=== PATIENT | male | born 1990 | race Caucasian/White ===

== ENCOUNTER → 2022-12-03 11:29 | Outpatient (CLI) | payer OTHER, SELFPAY ==
--- NOTE | ~2022-12-03 | CT_ITS ---
Non-contrast Head CT History: Pain Technique: Axial non-contrast imaging of the brain was performed. Dose reduction technique was used on this scan by utilizing automated exposure control and iterative reconstruction technique. The dose -length product (DLP) was 599.57 mGy-cm. Findings: There is no evidence of intracranial hemorrhage, mass lesion, or acute infarct. Brain par enchyma appears normal. The ventricles and subarachnoid spaces are normal in size. The calvarium ap pears normal. The visualized paranasal sinuses and mastoid air cells are clear. Impression: No significant abnormality seen. Reviewed, dictated and finalized at location . Impression: No significant abnormality seen.
== END ==
PROVIDERS: PCP Family Medicine Sports Medicine; Visit Provider Family Medicine Sports Medicine
DX: G43.909 Migraine, unspecified, not intractable, without status migrainosus (principal); I10 Essential (primary) hypertension
CPT/HCPCS: 70450

== ENCOUNTER 2024-12-09 14:43 | Emergency (ER) | payer OTHER, SELFPAY ==
--- NOTE | ~2024-12-09 | US_ITS ---
TESTICULAR ULTRASOUND (Doppler ultrasound interrogation techniques used as needed for this exam.) Ordering provider: Shahid Ricks MD History: . left testicular pain . Comparison: None. FINDINGS: TESTICLES: Normal in size. The right measures 4.3x 2x 3 cm and the left measures 3.8x 2x 2.9 cm. Norm al echogenicity bilaterally without mass lesion. Normal Doppler flow bilaterally. EPIDIDYMIDES: Normal in size. The right measures 0.5 cm and the left 0.6 cm. Normal echogenicity bila terally. Both demonstrate normal Doppler flow. Epididymal cyst is seen on the left side measuring 0.3 x 0.3 x 0.3 cm.. HYDROCELE: Left hydrocele. VARICOCELE: Left varicocele. OTHER ABNORMALITY: None seen. IMPRESSION: Left epididymal cyst. Left hydrocele. Left varicocele. Otherwise, normal testicular ultrasound. Reviewed, dictated and finalized at location A. IMPRESSION: Left epididymal cyst. Left hydrocele. Left varicocele. Otherwise, normal testic ular ultrasound.
--- NOTE | ~2024-12-09 | CT_ITS ---
CT abdomen pelvis wo con Ordering provider: Shahid Ricks History: 34 years Male with . LLQ pain/testicular pain . Comparison: None. Technique: CT abdomen and pelvis without IV and without oral contrast. Automated exposure control and iterative reconstruction technique were employed. The dose-length product was 264.73 mGy-cm. Findings: VISUALIZED LOWER CHEST: Normal. UPPER ABDOMINAL ORGANS: Liver: Normal. Gallbladder: Contracted. Spleen: Normal. Stomach/duodenum: Normal. Pancreas: Normal. Adrenals: Normal. Kidneys: 5 mm stone in the left kidney lower pole. Minimal fullness of the left pelvicalyceal system versus parapelvic cysts. No ureteric stones. PELVIC ORGANS: The bladder is underfilled. BOWEL AND MESENTERY: Colon: No evidence of diverticulitis. Normal appendix. Small Bowel: Normal. No obstruction. Peritoneum/mesentery: No free air or free fluid. No mesenteric lymphadenopathy. RETROPERITONEUM: Normal aorta. No retroperitoneal lymphadenopathy. MUSCULOSKELETAL: Superficial soft tissues: The superficial soft tissues are normal. Bones: Normal spine. IMPRESSION: 1. No evidence of appendicitis, diverticulitis or intestinal obstruction. 2. Left kidney stone. 3. Left fullness of the renal pelvis versus parapelvic cysts. Reviewed, dictated and finalized at location A.
--- OUTSIDE RECORDS SUMMARY | 2024-12-09 14:44 | XMS_ITS | Encounter Summary ---
Author Organization [employer] Address 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
--- OUTSIDE RECORDS SUMMARY | 2024-12-09 14:44 | XMS_ITS | Encounter Summary ---
Author Organization [facility] Address [address] [place] [address] Care Team Providers Care Engineer Name Role Phone Jaycob Blackwell MD Primary Care Provider [phone] Reason for Visit * Reason Onset Date Comments Return To Work 09/27/2018 please fax retur n to work status to [phone] ATTN: Yue Rodriguez Encounter Details Date Type Department Care Team (Late st Contact Info) Description 09/27/2018 Telephone [facility] [address] [place] [address] Ajay Trent MD [address] [address] Return To Work (please fax return to work status to [phone] ATTN: Yue Rodriguez) Social History Tobacco Use Types Packs/Day Years Used Date Smoking Tobacco: Never Smokeless Tobacco: Never Alcohol Use Standard Drinks/Week Comments No 0 (1 standard drink = 0.6 oz pur e alcohol) Sex and Gender Information Value Date Recorded Sex Assigned at Not on file 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 Answer Date of Assessment Author No 08/10/2018 2:33 PM CDT Betty Nugent RN * Is person blind or have serious difficulty seeing? Answer Date of Assessment Author No 08/10/2018 2:33 PM CDT Betty Nugent RN * Does person have serious difficulty walking/climbing stairs? Answer Date of Assessment Author No 08/10/2018 2:33 PM CDT Betty Nugent RN * Does person have difficulty dressing/bathing? Answer Date of Assessment Author No 08/10/2018 2:33 PM CDT Betty Nugent RN * Does person have difficulty doing errands alone? Answer Date of Assessment Author No 08/10/2018 2:33 PM CDT Betty Nugent RN documented as of this encounter Mental Status * Does person have difficulty concentrating/remembering/making decisions? Answer Entry Date Author No 08/10/2018 2:33 PM CDT Betty Nugent RN documented in this encounter Miscellaneous Notes * Telephone Encounter - Paulo Song MD - 09/27/2018 6:51 PM CDT Faxed Paulo Song MD, PGY5 Division of Plastic and Reconstructive Surgery [facility] 09/27/18 6:51 PM documented in this encounter Plan of Treatment Not on file documented as of this encounter Visit Diagnoses Not on filedocumented in this encounter Care Teams Engineer Relationship Specialty Start Date End Date Jaycob Blackwell MD [address] [address] PCP - General 08/04/18 documented as of this encounter
--- OUTSIDE RECORDS SUMMARY | 2024-12-09 14:44 | XMS_ITS | Clinical Summary ---
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
--- OUTSIDE RECORDS SUMMARY | 2024-12-09 14:44 | XMS_ITS | Patient Health Record ---
Author Organization [facility] Address [address] [place] [address] Care Team Providers Care Hi Lo Driver Name Role Phone Benny Ovalle Primary Care Provider Reason For Referral No Information Plan Of Treatment No Information Insurance Providers Payer Name Payer Address Payer Phone Subscriber Number Group Number Insured Name Patient Relationship to Insured Coverage Start Date Coverage End Date C[employer] [address] [place] [phone] [id number] Daniel Norton Self - patient is the insured 2020
--- OUTSIDE RECORDS SUMMARY | 2024-12-09 14:45 | XMS_ITS | Encounter Summary ---
Author Organization [facility] Address [address] [place] [address] Care Team Providers Care Labor Relations Specialist Name Role Phone Jaycob Blackwell MD Primary Care Provider [phone] Encounter Details Date Type Department Care Team (Late st Contact Info) Description 12/07/2018 Telephone [facility] [address] [place] [address] Ajay Trent MD [address] [address] Social History Tobacco Use Types Packs/Day Years Used Date Smoking Tobacco: Never Smokeless Tobacco: Never Alcohol Use Standard Drinks/Week Comments No 0 (1 standard drink = 0.6 oz pur e alcohol) Sex and Gender Information Value Date Recorded Sex Assigned at Not on file 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
--- OUTSIDE RECORDS SUMMARY | 2024-12-09 14:45 | XMS_ITS | Encounter Summary ---
Author Organization [facility] Address [address] [place] [address] Care Team Providers Care Salesperson Meats Name Role Phone Jaycob Blackwell MD Primary Care Provider Encounter Details Date Type Department Care Team (Late st Contact Info) Description 08/10/2018 Telephone [facility] [address] [place] [address] Ajay Trent MD [address] [address] Social History Tobacco Use Types Packs/Day Years Used Date Smoking Tobacco: Never Smokeless Tobacco: Never Alcohol Use Standard Drinks/Week Comments No 0 (1 standard drink = 0.6 oz pur e alcohol) Sex and Gender Information Value Date Recorded Sex Assigned at Not on file 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
--- OUTSIDE RECORDS SUMMARY | 2024-12-09 14:45 | XMS_ITS | Clinical Summary ---
Author Organization [facility] Address [address] [place] [address] Care Team Providers Care Air Surveillance Operator Name Role Phone Jaycob Blackwell MD Primary Care Provider [phone] Source Comments [facility],non-owned Affiliates and Associated Physician Practices is amultiple site organization consisting of ambulatory clinics and hospital sitesin [place], [place], [place] and [place]. This disclosure is being madepursuant to the Care Everywhere program and may not contain all information available regarding this patient. Last updated 18.[facility] Allergies No known active allergies Medications * Be aware that medications may not be up to date on this document. Alwaysverify current medications with the patient. 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 08/04/2018 Displaced fracture of base o f fourth metacarpal bone of right hand with routine healing Displaced fracture of base o f fifth metacarpal bone of right hand with routine healing Open wound of right wrist with tendon involvemen t Family History Medical History Relation Name Comments None Known Father None Known Mother Relation Name Status Comments Father Alive Mother Alive Social History Tobacco Use Types Packs/Day Years Used Date Smoking Tobacco: Former Smokeless Tobacco: Never Tobacco Cessation:Counseling Given: No Alcohol Use Standard Drinks/Week Comments No 0 (1 standard drink = 0.6 oz pur e alcohol) Sex and Gender Information Value Date Recorded Sex Assigned at Not on file 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 Gender Identity Not on file Sexual Orientation Not on file Last Filed Vital Signs Vital Sign Reading Time Taken Comments Blood Pressure 122/84 07/01/2019 2:36 PM BRANCH CONTROLLER Pulse 123 07/01/2019 2:36 PM BRANCH CONTROLLER Temperature 37.2 C (99 F) 07/01/2019 2:36 PM BRANCH CONTROLLER Respiratory Rate 16 07/01/2019 2:36 PM BRANCH CONTROLLER Oxygen Saturation 96% 07/01/2019 2:36 PM BRANCH CONTROLLER Inhaled Oxygen Concentration 21% 08/10/2018 2 :10 PM CDT Weight 86.2 kg (190 lb) 07/01/2019 2:36 PM BRANCH CONTROLLER Height 167.6 cm (5' 6) 07/01/2019 2:36 PM BRANCH CONTROLLER Body Mass Index 30.67 07/01/2019 2:36 PM BRANCH CONTROLLER Plan of Treatment Health Maintenance Due Date Last Done Comments HIV SCREENING 2004 HEPATITIS C SCREENING 09/01/2007 DTAP/TDAP/TD VACCINES (1 - Tdap) 2008 HEPATITIS B VACCINE (1 of 3 - 19+ 3-dose series) 2008 HPV VACCINE (1 - 3-dose SCDM series) 2016 COVID-19 VACCINE ( - 2023-2 5 season) 2024 DEPRESSION SCREENING 05/30/2024 INFLUENZA VACCINE (#1) 2025 07/08/2017 ZOSTER VACCINE (1 of 2) 09/06/2039 HIB VACCINE Aged Out No longer eligi ble based on patient's age to complete this topic MENINGOCOCCAL (Group B) VACC INE SHARED DECISION-MAKING Aged Out No longer eligibl e based on patient's age to complete this topic MENINGOCOCCAL GROUPS A/C/Y/W VACCINE Aged Out No longer eligible b ased on patient's age to complete this topic PNEUMOCOCCAL VACCINE Aged Out No long er eligible based on patient's age to complete this topic Medical Devices Implanted Type Area Bulk Sausage Casing Tier Off Device Identifier Shelf Expiration Date Model / Serial / Lot Wire K .045in 6in 2 Troc Smth Fx Strl Implanted:Qty: 1 on 08/10/2018 by Ajay Trent MD at [facility] Right: Hand [employer] 12/21/2021 [id number] / / [id number] Mtrx Tissue 5x5cm Cytal Mesh Brn - [id number] Implanted:Qty: 1 on 08/10/2018 by Ajay Trent MD at [facility] Right: Hand [employer] 04/28/2020 [id number] / [id number] / [id number] Explanted Type Area Bulk Sausage Casing Tier Off Device Identifier Shelf Expiration Date Model / Serial / Lot Wire K .045in 6in 2 Troc Smth Fx Strl Explanted:Qty: 1 on 08/10/2018 by Ajay Trent MD at [facility] Right: Hand [employer] 12/21/2021 [id number] / / [id number] [facility] PAYOR GENERIC [facility] Address: [address] [id number] [place] [address] CIGNA PAYOR GENERIC PAYOR GENERIC PAYOR GENERIC WC PAYOR GENERIC Advance Directives * Full Code (Latest Code Status on File) Date Activated Date Inactivated Comments 08/09/2018 5:47 PM 08/10/2018 3:43 PM Care Teams Air Surveillance Operator Relationship Specialty Start Date End Date Jaycob Blackwell MD [address] [address] PCP - General 08/04/18
--- OUTSIDE RECORDS SUMMARY | 2024-12-09 14:45 | XMS_ITS | Encounter Summary ---
Author Organization [facility] Address [address] [facility] [place] [address] Care Team Providers Care Briquette Machine Operator Name Role Phone Jaycob Blackwell MD Primary Care Provider [phone] Reason for Visit * Reason Onset Date Comments Return To Work 08/07/2018 pt called and he needs a note faxed to his job letting them know how long he will be off from work - he is scheduled for surgery 08/10/18 - please fax to Human Resources @ [phone] Encounter Details Date Type Department Care Team (Late st Contact Info) Description 08/07/2018 Telephone [facility] [address] [place] [address] Ajay Trent MD [address] [address] Return To Work (pt called and he needs a note faxed to his job letting them know how long he will be off from work - he is scheduled for surgery 08/10/18 - please fax to Human Resources @ [phone]) Social History Tobacco Use Types Packs/Day Years Used Date Smoking Tobacco: Never Smokeless Tobacco: Never Alcohol Use Standard Drinks/Week Comments No 0 (1 standard drink = 0.6 oz pur e alcohol) Sex and Gender Information Value Date Recorded Sex Assigned at Not on file 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 I returned the patient's phone call. I will fax the letter to the number listed. Jone Vargas MD 08/07/2018 1:06 PM Pager: [phone] documented in this encounter Plan of Treatment Not on file documented as of this encounter Visit Diagnoses Not on filedocumented in this encounter Care Teams Briquette Machine Operator Relationship Specialty Start Date End Date Jaycob Blackwell MD [address] [facility] [address] [place] [address] PCP - General 08/04/18 documented as of this encounter
--- OUTSIDE RECORDS SUMMARY | 2024-12-09 14:45 | XMS_ITS | Encounter Summary ---
Author Organization [facility] Address [address] [place] [address] Care Team Providers Care Dinkey Skinner Name Role Phone Jaycob Blackwell MD Primary Care Provider [phone] Encounter Details Date Type Department Care Team (Late st Contact Info) Description 08/04/2018 Telephone [facility] [address] [place] [address] Ajay Trent MD [address] [address] Social History Tobacco Use Types Packs/Day Years Used Date Smoking Tobacco: Never Smokeless Tobacco: Never Alcohol Use Standard Drinks/Week Comments No 0 (1 standard drink = 0.6 oz pur e alcohol) Sex and Gender Information Value Date Recorded Sex Assigned at Not on file 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 UT CLEANER documented in this encounter Plan of Treatment Not on file documented as of this encounter Visit Diagnoses Not on filedocumented in this encounter Care Teams Dinkey Skinner Relationship Specialty Start Date End Date Jaycob Blackwell MD [address] [place] [address] PCP - General 08/04/18 documented as of this encounter
--- OUTSIDE RECORDS SUMMARY | 2024-12-09 14:45 | XMS_ITS | Continuity of Care Document ---
Author Organization [facility] Address [address] [facility] [place] [address] Phone Care Team Providers Care Hybrid Tester Name Role Phone Manuel Nava Unavailable Unavailable Allergies, Adverse Reactions, Alerts Substance Reaction Status Criticality No Known Drug Allergies Active No I nformation Medications Medication Instructions Dosage Effective Dates (start - stop) Status Comments Silvadene 1 % Topical Cream Apply cream to affected area twice per day - Active Procedures Procedure Date Offic/outpt E&m Estab Low-mod 0 Offic/outpt E&m Estab Low-mod 9 Advance Directives Directive Yes / No Effective Date File Name No Information Encounters Encounter Description Practice Location Reason(s) For Visit Diagnoses Date Provider Providers Copied on Encounter Offic/outpt E&m Estab Low-mod Hannah El MD [facility], [address] [facility] [address] [place], [id number], [place] tel:[phone] [facility] No Information Brandy Jackson. [address] [place], [address], [place]. tel:[phone] Offic/outpt E&m Estab Low-mod Hannah [place], [address] [facility] [place], [id number], [place] tel:[phone] [facility] No Information Brandy Jackson. [address] [place], [address], [place]. tel:[phone] Family History Family Member Type Diagnosis Age At Onset No Information Payers Payer name Insurance type Covered green party ID Authoriza tion(s) [employer] [id number] Social History Type Description Quantity Date Captured Comments Sex Male Smoking Status No Information Chief Complaint And Reason For Visit No Information Reason For Referral Reason For Referral No Information History Of Present Illness Encounter Date Complaint History Of Prese nt Illness No Information Functional Status Date Functional Assessmen t No Information Instructions Date Instruction Additional Infor mation No Information Assessments Type Assessment Date No Information Patient Care Teams Name Effective Dates (start - stop) Status Members No Information
--- OUTSIDE RECORDS SUMMARY | 2024-12-09 14:45 | XMS_ITS | Continuity of Care Document ---
Author Organization [facility] Address [address] [place] [address] Phone Care Team Providers Care Plasma Processing Centrifuge Operator Name Role Phone Paxton Trotter MD Unavailable Unavailable Allergies, Adverse Reactions, Alerts Substance Reaction Status Criticality No Known Allergies Active No Inform ation Medications Medication Instructions Dosage Effective Dates (start - stop) Status Comments Protonix 40 mg tablet,delayed release take 1 tablet (40MG) by oral route every day 40 MG - Active Procedures Procedure Date PREV VISIT, NEW, AGE 18-39 OFFICE/OUTPATIENT VISIT, [facility] Advance Directives Directive Yes / No Effective Date File Name No Information Encounters Encounter Description Practice Location Reason(s) For Visit Diagnoses Date Provider Providers Copied on Encounter [facility], [address] [place], [place], [id number], tel:[phone] [facility] No Information [address] [place], [id number] , [place]. tel:[phone] Referring Provider: Paxton Trotter, [address] [place], [place], [id number]. tel:[phone] PREV VISIT, NEW, AGE 18-39 [facility], [address] [place], [id number], [place] tel:[phone] [facility] Physical (chief complaint) Routine Medical ExamGERDChest Pain, UnspecifiedRoutine Medical Exam [address], [facility] [place], [place], [id number] , [place]. tel:[phone] Referring Provider: [facility] [place], [place], [id number]. tel:[phone] Family History Family Member Type Diagnosis Age At Onset Father Problem (finding) Alive and well Mother Problem (finding) Alive and well Brother Problem (finding) Alive and well Payers Payer name Insurance type Covered democrat ID Authoriza tion(s) No Information Social History Type Description Quantity Date Captured Comments Sex Male Smoking Status No Information Chief Complaint And Reason For Visit No Information Plan Of Treatment Date Type Action Status No Information History Of Present Illness Encounter Date Complaint History Of Prese nt Illness No Information Instructions Date Instruction Additional Infor mation No Information Assessments Type Assessment Date No Information
[2024-12-09 14:46] VITALS: BP 134/98; PULSE 56; RESP 16; TEMP 36.7; O2SAT 99
--- OUTSIDE RECORDS SUMMARY | 2024-12-09 15:14 | XMS_ITS | Encounter Summary ---
Author Organization [facility] Address [address] [facility] [place] [address] Care Team Providers Care Loan And Credit Manager Name Role Phone Jaycob Blackwell MD Primary Care Provider Encounter Details Date Type Department Care Team (Late st Contact Info) Description 08/10/2018 Telephone [facility] [address] [place] [address] Ajay Trent MD [address] [address] Social History Tobacco Use Types Packs/Day Years Used Date Smoking Tobacco: Never Smokeless Tobacco: Never Alcohol Use Standard Drinks/Week Comments No 0 (1 standard drink = 0.6 oz pur e alcohol) Sex and Gender Information Value Date Recorded Sex Assigned at Not on file 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
--- OUTSIDE RECORDS SUMMARY | 2024-12-09 15:14 | XMS_ITS | Encounter Summary ---
Author Organization [facility] Address [address] [facility] [place] [address] Care Team Providers Care Sales Receptionist Name Role Phone Jaycob Blackwell MD Primary Care Provider Reason for Visit * Reason Onset Date Comments Return To Work 08/07/2018 pt called and he needs a note faxed to his job letting them know how long he will be off from work - he is scheduled for surgery 08/10/18 - please fax to Human Resources @ [phone] Encounter Details Date Type Department Care Team (Late st Contact Info) Description 08/07/2018 Telephone [facility] [address] [place] [address] Ajay Trent MD [address] [address] Return To Work (pt called and he needs a note faxed to his job letting them know how long he will be off from work - he is scheduled for surgery 08/10/18 - please fax to Human Resources @ [phone]) Social History Tobacco Use Types Packs/Day Years Used Date Smoking Tobacco: Never Smokeless Tobacco: Never Alcohol Use Standard Drinks/Week Comments No 0 (1 standard drink = 0.6 oz pur e alcohol) Sex and Gender Information Value Date Recorded Sex Assigned at Not on file 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
--- OUTSIDE RECORDS SUMMARY | 2024-12-09 15:14 | XMS_ITS | Continuity of Care Document ---
Author Organization [facility] Address [address] [facility] [place] [address] Phone Care Team Providers Care Case Management Coordinator Name Role Phone Paxton Trotter MD Unavailable Unavailable Allergies, Adverse Reactions, Alerts Substance Reaction Status Criticality No Known Allergies Active No Inform ation Medications Medication Instructions Dosage Effective Dates (start - stop) Status Comments Protonix 40 mg tablet,delayed release take 1 tablet (40MG) by oral route every day 40 MG - Active Procedures Procedure Date PREV VISIT, NEW, AGE 18-39 OFFICE/OUTPATIENT VISIT, [facility] Advance Directives Directive Yes / No Effective Date File Name No Information Encounters Encounter Description Practice Location Reason(s) For Visit Diagnoses Date Provider Providers Copied on Encounter [facility], [address] [place], [place], [id number], tel:[phone] [facility] No Information [address], [place], [id number] , [place]. tel:[phone] Referring Provider: Paxton Trotter, [address] [place], [place], [id number]. tel:[phone] PREV VISIT, NEW, AGE 18-39 [facility], [address] [place], [id number], [place] tel:[phone] [facility] Physical (chief complaint) Routine Medical ExamGERDChest Pain, UnspecifiedRoutine Medical Exam [address], [facility] [place], [id number] , [place]. tel:[phone] Referring Provider: [facility] [place], [place], [id number]. tel:[phone] Family History Family Member Type Diagnosis Age At Onset Father Problem (finding) Alive and well Mother Problem (finding) Alive and well Brother Problem (finding) Alive and well Payers Payer name Insurance type Covered constitution party ID Authoriza tion(s) No Information Social History [...]
--- OUTSIDE RECORDS SUMMARY | 2024-12-09 15:14 | XMS_ITS | Continuity of Care Document ---
Author Organization [facility] Address [address] [facility] [place] [address] Phone Care Team Providers Care Analytical Chemistry Teacher Name Role Phone Manuel Nava Unavailable Unavailable [...] Offic/outpt E&m Estab Low-mod Hannah El MD [facility], [address] [facility] [place], [id number], [place] tel:[phone] [facility] No Information Brandy Jackson. [address] [place], [address], [place]. tel:[phone] Offic/outpt E&m Estab Low-mod Hannah [place], [address] [facility] [place], [id number], [place] tel:[phone] [facility] No Information Brandy Jackson. [address] [place], [address], [place]. tel:[phone] Family History Family Member Type Diagnosis Age At Onset No Information Payers Payer name Insurance type Covered republican ID Authoriza tion(s) [employer] [id number] Social History Type Description Quantity Date [...]
--- OUTSIDE RECORDS SUMMARY | 2024-12-09 15:14 | XMS_ITS | Encounter Summary ---
Author Organization [facility] Address [address] [facility] [place] [address] Care Team Providers Care Cinema Operator Name Role Phone Jaycob Blackwell MD Primary Care Provider [phone] Encounter Details Date Type Department Care Team (Late st Contact Info) Description 08/04/2018 Telephone [facility] [address] [place] [address] Ajay Trent MD [address] [address] Social History Tobacco Use Types Packs/Day Years Used Date Smoking Tobacco: Never Smokeless Tobacco: Never Alcohol Use Standard Drinks/Week Comments No 0 (1 standard drink = 0.6 oz pur e alcohol) Sex and Gender Information Value Date Recorded Sex Assigned at Not on file 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 NESS ACCOUNT MANAGER documented in this encounter Plan of Treatment Not on file documented as of this encounter Visit Diagnoses Not on filedocumented in this encounter Care Teams Cinema Operator Relationship Specialty Start Date End Date Jaycob Blackwell MD [address] [place] [address] PCP - General 08/04/18 documented as of this encounter
--- OUTSIDE RECORDS SUMMARY | 2024-12-09 15:14 | XMS_ITS | Clinical Summary ---
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
--- OUTSIDE RECORDS SUMMARY | 2024-12-09 15:14 | XMS_ITS | Encounter Summary ---
Author Organization [facility] Address [address] [place] [address] Care Team Providers Care Analytical Manager Name Role Phone Unavailable Primary Care Provider [...] on file Legal Sex Male 5:26 AM CURRICULUM DIRECTOR Gender Identity Not on file Sexual Orientation Not on file documented as of this encounter Plan of Treatment Not on file documented as of this encounter Visit Diagnoses Diagnosis Depressive disorder, not elsewhere classified- Primary documented in this encounter
--- OUTSIDE RECORDS SUMMARY | 2024-12-09 15:14 | XMS_ITS | Clinical Summary ---
Author Organization [facility] Address [address] [facility] [place] [address] Care Team Providers Care E Business Project Manager Name Role Phone Jaycob Balckwell MD Primary Care Provider [phone] Source Comments [facility],non-owned Affiliates and Associated Physician Practices is amultiple site organization consisting of ambulatory clinics and hospital sitesin [place], [place], [place] and [place]. This disclosure is being madepursuant to the Care Everywhere program and may not contain all information available regarding this patient. Last updated 18.[facility] Allergies No known active allergies Medications * [...] on file Legal Sex Male 6:51 PM APPLICATION DEVELOPMENT DIRECTOR Gender Identity Not on file Sexual Orientation Not on file Last Filed Vital Signs Vital Sign Reading Time Taken Comments Blood Pressure 122/84 07/01/2019 2:36 PM APPLICATION DEVELOPMENT DIRECTOR Pulse 123 07/01/2019 2:36 PM APPLICATION DEVELOPMENT DIRECTOR Temperature 37.2 C (99 F) 07/01/2019 2:36 PM APPLICATION DEVELOPMENT DIRECTOR Respiratory Rate 16 07/01/2019 2:36 PM APPLICATION DEVELOPMENT DIRECTOR Oxygen Saturation 96% 07/01/2019 2:36 PM APPLICATION DEVELOPMENT DIRECTOR Inhaled Oxygen Concentration 21% 08/10/2018 2 :10 PM CDT Weight 86.2 kg (190 lb) 07/01/2019 2:36 PM APPLICATION DEVELOPMENT DIRECTOR Height 167.6 cm (5' 6) 07/01/2019 2:36 PM APPLICATION DEVELOPMENT DIRECTOR Body Mass Index 30.67 07/01/2019 2:36 PM APPLICATION DEVELOPMENT DIRECTOR Plan of Treatment Health Maintenance Due Date [...] this topic Medical Devices Implanted Type Area Continuous Mining Operator Device Identifier Shelf Expiration Date Model / Serial / Lot Wire K .045in 6in 2 Troc Smth Fx Strl Implanted:Qty: 1 on 08/10/2018 by Ajay Trent MD at [facility] Right: Hand [employer] 12/21/2021 [id number] / / [id number] Mtrx Tissue 5x5cm Cytal Mesh Brn - [id number] Implanted:Qty: 1 on 08/10/2018 by Ajay Trent MD at [facility] Right: Hand [employer] 04/28/2020 [id number] / [id number] / [id number] Explanted Type Area Continuous Mining Operator Device Identifier Shelf Expiration Date Model / Serial / Lot Wire K .045in 6in 2 Troc Smth Fx Strl Explanted:Qty: 1 on 08/10/2018 by Ajay Trent MD at [facility] Right: Hand [employer] 12/21/2021 [id number] / / [id number] [facility] GENERIC PAYOR GENERIC CIGNA CIGNA PAYOR GENERIC PAYOR GENERIC PAYOR GENERIC WC PAYOR GENERIC Advance Directives * Full Code (Latest Code Status on File) Date Activated Date Inactivated Comments 08/09/2018 5:47 PM 08/10/2018 3:43 PM Care Teams E Business Project Manager Relationship Specialty Start Date End Date Jaycob Blackwell MD [address] [address] PCP - General 08/04/18
--- OUTSIDE RECORDS SUMMARY | 2024-12-09 15:14 | XMS_ITS | Encounter Summary ---
Author Organization [facility] Address [address] [place] [address] Care Team Providers Care On Car Supervisor Name Role Phone Jaycob Blackwell MD Primary Care Provider Encounter Details Date Type Department Care Team (Late st Contact Info) Description 12/07/2018 Telephone [facility] [address] [place] [address] Ajay Trent MD [address] [address] Social History Tobacco Use Types Packs/Day Years Used Date Smoking Tobacco: Never Smokeless Tobacco: Never Alcohol Use Standard Drinks/Week Comments No 0 (1 standard drink = 0.6 oz pur e alcohol) Sex and Gender Information Value Date Recorded Sex Assigned at Not on file 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
--- OUTSIDE RECORDS SUMMARY | 2024-12-09 15:14 | XMS_ITS | Encounter Summary ---
Author Organization [facility] Address [address] [facility] [place] [address] Care Team Providers Care Mattress Renovator Name Role Phone Jaycob Blackwell MD Primary Care Provider [phone] Reason for Visit * Reason Onset Date Comments Return To Work 09/27/2018 please fax retur n to work status to [phone] ATTN: Yue Rodriguez Encounter Details Date Type Department Care Team (Late st Contact Info) Description 09/27/2018 Telephone [facility] [address] [place] [address] Ajay Trent MD [address] [address] Return To Work (please fax return to work status to [phone] ATTN: Yue Rodriguez) Social History Tobacco Use Types Packs/Day Years Used Date Smoking Tobacco: Never Smokeless Tobacco: Never Alcohol Use Standard Drinks/Week Comments No 0 (1 standard drink = 0.6 oz pur e alcohol) Sex and Gender Information Value Date Recorded Sex Assigned at Not on file 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
[2024-12-09 15:48] VITALS: BP 129/83; PULSE 60; RESP 16; TEMP 36.7; O2SAT 97
[2024-12-09] MEDS: KETOROLAC 30 MG/ML VIAL (*BKC) IV PUSH (15:59)
[2024-12-09 16:10] LABS: Add Urine Microscopic? NO; Appearance Urine Clear (Clear); Glucose Urine UA Negative (Negative); Leukocyte Esterase Ur Negative LEU/UL (Negative); Nitrate Urine Negative (Negative); Specific Grav Ur 1.019 (1.001-1.035)
[2024-12-09 16:11] LABS: Hematocrit 48.1 % (42.0-52.0); Hemoglobin 16.0 g/dL (14.0-18.0); Immature Granulocyte Percent A 0.7 % (0-0.5); Lymphocytes Absolute Auto 1.94 K/mm3 (0.9-3.2); Mean Corpuscular HGB Conc 33.3 g/dl (32-36); Mean Corpuscular Hemoglobin 30.3 pg (26-34); Mean Corpuscular Volume 91.1 fl (80-100); Nucleated Red Blood Cells Absolute Auto 0.000 K/mm3 (0.0-0.012); Nucleated Red Blood Cells Perc 0.0 % (0.0-0.2); Platelet Count Result 290 k/mm3 (150-375); Red Blood Count 5.28 M/mm3 (4.6-6.20); White Blood Count 7.4 K/mm3 (4.5-10.0)
[2024-12-09 16:21] LABS: Alanine Aminotransferase 43 U/L (6-50); Albumin Level 4.3 g/dL (3.5-5.1); Alkaline Phosphatase 60 U/L (38-126); Anion Gap 7 mmol/L (4-12); Aspartate Amino Transferase 34 U/L (17-59); Bilirubin,Total 0.4 mg/dL (0.2-1.3); Blood Urea Nitrogen 13 mg/dL (9-20); Calcium 9.5 mg/dL (8.4-10.2); Carbon Dioxide 29 mmol/L (22-30); Chloride 104 mmol/L (98-107); Estimated CRCL calculation 87 ml/min; Estimated Glomerular Filt Rate > 60; Glucose 91 mg/dL (65-110); Potassium 4.1 mmol/L (3.4-5.0); Sodium 140 mmol/L (137-145); Total Protein 8.1 g/dL (6.3-8.2)
--- NOTE | 2024-12-09 18:07 | ED.MALEGU ---
HPI - Male Genitourinary General Chief complaint: Urogenital-Male Stated complaint: L testicle pain that radiates into the groin Time Seen by Provider: 12/09/24 14:49 History of Present Illness HPI Narrative: Patient is a 34-year-old male who presents ER with pain to left testicle. Ongoing over last couple days. Radiates into left lower quadrant of the abdomen. No dysuria urinary frequency urgency. No blood in urine. No urethral discharge. Does not believe there is any exposure to STI. No known trauma. 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 Related Data Allergies Allergy/AdvReac Type Severity Reaction Status Date / Time fentanyl Allergy Other Verified 12/09/24 14:44 Review of Systems Review of Systems: All systems reviewed & are unremarkable except as noted in HPI and below Constitutional: Constitutional: Reports no additional constitutional complaints Cardiovascular: Cardiovascular: Reports no additional cardiovascular complaints Respiratory: Respiratory: Reports no additional respiratory complaints Gastrointestinal: Gastrointestinal: Reports no additional gastrointestinal complaints Genitourinary: Genitourinary: Reports no additional male genitourinary complaints [facility] Past Medical History Medical History (Updated 12/09/24 @ 18:18 by Shahid Ricks MD) Healthy adult male Surgical History Surgical History (Updated 12/09/24 @ 18:18 by Shahid Ricks MD) No pertinent past surgical history Exam Narrative: GENERAL: Well-appearing, well-nourished, and in no acute distress. HEAD: Normocephalic, atraumatic. CHEST: Clear to auscultation. No respiratory distress. HEART: Regular rate and rhythm. Normal peripheral pulses. ABDOMEN: Soft, nontender, nondistended. : Normal appearing external genitalia with tenderness to left testicle and spermatic cord. Normal right-sided exam. Normal hernia check. EXTREMITIES: Normal range of motion. No edema. SKIN: Warm, dry, no rash. NEURO: Alert and oriented x3. PSYCH: Normal mood and affect. Course Course Emergency Course: Patient resting comfortably. Informed of results. Discussed with thing restriction follow-up with urology. Patient verbalized understanding. Vital Signs Vital signs: Vital Signs Temperature 98.1 F 12/09/24 14:46 Pulse Rate 56 L 12/09/24 14:46 Respiratory Rate 16 12/09/24 14:46 Blood Pressure 134/98 H 12/09/24 14:46 Pulse Oximetry 99 12/09/24 14:46 Oxygen Delivery Room Air 12/09/24 14:46 Temperature 98.1 F 12/09/24 15:48 Pulse Rate 60 12/09/24 15:48 Respiratory Rate 16 12/09/24 15:48 Blood Pressure 129/83 12/09/24 15:48 Pulse Oximetry 97 12/09/24 15:48 Oxygen Delivery Room Air 12/09/24 15:48 MDM - Male Genitourinary Lab Data 12/09/24 15:58 12/09/24 15:58 Labs: Lab Results 12/09/24 Range/Units 15:58 WBC 7.4 (4.5-10.0) K/mm3 RBC 5.28 (4.6-6.20) M/mm3 Hgb 16.0 (14.0-18.0) g/dL Hct 48.1 (42.0-52.0) % MCV 91.1 (80-100) fl MCH 30.3 (26-34) pg MCHC 33.3 (32-36) g/dl RDW 11.9 (11.5-14.5) % Plt Count 290 (150-375) k/mm3 MPV 9.8 (7.4-10.4) fl Immature Gran % (Auto) 0.7 H (0-0.5) % Neut % (Auto) 62.1 (45.5-73.1) % Lymph % (Auto) 26.3 (18.3-44.2) % Morrill % (Auto) 10.1 H (2.6-8.5) % Eos % (Auto) 0.3 (0-4.4) % Baso % (Auto) 0.5 (0.2-1.2) % Lymph # (Auto) 1.94 (0.9-3.2) K/mm3 Morrill # (Auto) 0.8 H (0.1-0.6) K/mm3 Eos # (Auto) 0.0 (0-0.3) K/mm3 Baso # (Auto) 0.0 (0.0-0.1) K/mm3 Abs Immat Gran (auto) 0.05 H (0.00-0.031) K/mm3 Absolute Neuts (auto) 4.6 (1.3-6.7) K/mm3 Absolute Nucleated RBC 0.000 (0.0-0.012) K/mm3 Nucleated RBC % 0.0 (0.0-0.2) % Sodium 140 (137-145) mmol/L Potassium 4.1 (3.4-5.0) mmol/L Chloride 104 (98-107) mmol/L Carbon Dioxide 29 (22-30) mmol/L Anion Gap 7 (4-12) mmol/L BUN 13 (9-20) mg/dL Creatinine 1.09 (0.7-1.3) mg/dL Estim Creat Clear Calc 87 ml/min Estimated GFR > 60 (59 - ) Glucose 91 (65-110) mg/dL Calcium 9.5 (8.4-10.2) mg/dL Total Bilirubin 0.4 (0.2-1.3) mg/dL AST 34 (17-59) U/L ALT 43 (6-50) U/L Alkaline Phosphatase 60 (38-126) U/L Total Protein 8.1 (6.3-8.2) g/dL Albumin 4.3 (3.5-5.1) g/dL Urine Color Yellow (Yellow) Urine Appearance Clear (Clear) Urine pH 5.5 (5.0-9.0) Ur Specific [place] 1.019 (1.001-1.035) Urine Protein Negative (Negative) mg/dL Urine Glucose (UA) Negative (Negative) mg/dL Urine Ketones Negative (Negative) mg/dL Ur Blood (Man) Negative (Negative) Urine Nitrate Negative (Negative) Urine Bilirubin Negative (Negative) Urine Urobilinogen 0.2 (<2.0) mg/dL Leukocyte Esterase Rfl Negative (Negative) GANESH/UL Imaging Data Radiologist's impression: ITS Impressions Scrotum Ultrasound 12/09/24 16:15 IMPRESSION: Left epididymal cyst. Left hydrocele. Left varicocele. Otherwise, normal testicular ultrasound. Abdomen/Pelvis CT 12/09/24 17:54 IMPRESSION: 1. No evidence of appendicitis, diverticulitis or intestinal obstruction. 2. Left kidney stone. 3. Left fullness of the renal pelvis versus parapelvic cysts. Discharge Plan Discharge Clinical Impression: Left varicocele, Hydrocele, Pain in left testicle, Epididymal cyst Patient Disposition: Home Condition: Stable Instructions: Hidrocele (ED), Varicocele (ED), Testicle Pain (ED) Additional Instructions: Where snug fitting underwear to support your testicles. Take anti-inflammatory medication to help with pain. Follow-up with urology for further treatment evaluation. Return ER if you have fever 100.4? F, you have burning urination, or you have worsening pain. Patient Language: French Prescriptions: New naproxen 375 mg tablet 375 mg PO BID Qty: 14 0RF Follow-up/Referrals: Clarence Vidal MD [Physician] - 1 Week Milli,José Miguel Gabriel MD [Primary Care Provider] - Stand Alone Forms: Work/School Release IP
[2024-12-09 18:49] VITALS: BP 119/68; PULSE 58; RESP 15; TEMP 37.1; O2SAT 98
== END 2024-12-09 18:54 | disposition home or self-care (01) ==
PROVIDERS: Emergency Provider Emergency Medicine; PCP Family Medicine Sports Medicine
DX: I86.1 Scrotal varices (principal); N43.3 Hydrocele, unspecified; N50.3 Cyst of epididymis; N20.0 Calculus of kidney
CPT/HCPCS: 36415; 74176; 76870; 80053; 81003; 85025; 93976; 96374; 99284; J1885